=== PATIENT | male | born 1960 | race Caucasian/White ===

== ENCOUNTER 2021-12-06 17:54 | Emergency (ER) | payer MEDICARE ==
[~2021-12-06 17:54] MED LIST: ASPIRIN81 MG PO; CETIRIZINE HCL10 MG PO; COLACE100 MG PO; FISH OIL 1,2001 EACH PO; FOLIC ACID0.4 MG PO; GLUCOPHAGE XR500 MG PO; LIPITOR 10MG TA10 MG PO; LISINOPRIL 5 MG5 MG PO; LYRICA100 MG PO; MOBIC15 MG PO; NORCO 7.5-3251 EACH PO; PERCOCET 5-3251 EACH PO; PERCOCET 7.5-31 EACH PO; PROTONIX 40MG T40 MG PO; ROLLING WALKER; SUPER B COMPLE150 MG PO; THERMOTABS TAB1 EACH PO; VENTOLIN HFA IN18 GM PO; VITAMIN E400 UNI2 PO; XARELTO15 MG PO; ZETIA10 MG PO
== END 2021-12-06 19:38 | disposition home or self-care (01) ==
LOC: FER 17:54
DX: S61.412A Laceration without foreign body of left hand, initial encounter (principal); F17.210 Nicotine dependence, cigarettes, uncomplicated; E11.40 Type 2 diabetes mellitus with diabetic neuropathy, unspecified; Z23 Encounter for immunization; Z79.84 Long term (current) use of oral hypoglycemic drugs; Z88.8 Allergy status to other drugs, medicaments and biological substances; W29.8XXA Contact with other powered hand tools and household machinery, initial encounter; Z28.310 Unvaccinated for COVID-19
CPT/HCPCS: 90471; 90714; 90715